=== PATIENT | female | born 1930 | race Caucasian/White ===

== ENCOUNTER 2017-10-29 19:11 | Inpatient (IN) | payer MEDICARE, BC ==
[~2017-10-29] VITALS: Ht 149.9 cm; Wt 88.9 kg
[2017-10-29 19:16] VITALS: BP 136/70
[2017-10-29 19:56] LABS: HEMOGLOBIN 14.4 gm/dL (12.0-15.0); MCH 29.5 pg (26.0-34.0); MCHC 32.7 g/dL (28.0-37.0); MCV 90.3 fL (80.0-100.0); NUCLEATED RBCS 0 /100WBC; PLATELET COUNT* 250 thou/uL (150-400); RBC 4.87 mil/uL (4.20-5.00); RDW-CV 15.3 % (10.5-14.5); WBC 14.8 thou/uL (4.0-11.0)
[2017-10-29 20:04] LABS: ANION GAP 8 mmol/L (7-16); BUN 19 mg/dL (7-18); CALCIUM 8.8 mg/dL (8.5-10.1); CHLORIDE 103 mmol/L (98-107); CO2 29 mmol/L (21-32); CREATININE 0.9 mg/dL (0.6-1.3); GLUCOSE 190 mg/dL (70-99); SODIUM 140 mmol/L (136-145)
[2017-10-29 20:08] LABS: PROTIME 28.8 Seconds (9.20-11.50)
[2017-10-29 20:16] LABS: ALBUMIN 3.6 g/dL (3.4-5.0); ALKALINE PHOSPHATASE 90 U/L (46-116); LIPASE 77 U/L (73-393); NT-PRO BRAIN NAT PEPTIDE 352 pg/mL (<300); SGOT 22 U/L (15-37); SGPT 26 U/L (30-65); TOTAL BILIRUBIN 0.3 mg/dL (<0.1-1.0); TOTAL PROTEIN 7.4 g/dL (6.4-8.2); TROPONIN-I LEVEL <0.06 ng/mL (<0.06)
[2017-10-29] MEDS ORDERED: CENTRUM SILVER1 EAC4 PO (20:35)
[2017-10-29] MEDS ORDERED: FISH OIL 1,001000 M2 PO (20:35)
[2017-10-29] MEDS ORDERED: TYLENOL EXTRA500 MG PO (20:35)
[2017-10-29] MEDS ORDERED: TUMS PO (20:36)
[2017-10-29] MEDS ORDERED: ALLOPURINOL 10100 M1 PO (20:36)
[2017-10-29] MEDS ORDERED: GLUCOTROL5 MG PO (20:36)
[2017-10-29] MEDS ORDERED: NEURONTIN600 MG PO (20:37)
[2017-10-29] MEDS ORDERED: LIPITOR10 MG PO (20:37)
[2017-10-29] MEDS ORDERED: OMEPRAZOLE20 M1 PO (20:37)
[2017-10-29 21:39] LABS: ABSOLUTE NEUTROPHILS 12.7 thou/uL (1.6-8.1)
[2017-10-29 21:46] LABS: PLATELET ESTIMATE ADEQUATE
[2017-10-29 22:34] LABS: URINE BILIRUBIN NEGATIVE (Negative); URINE BLOOD NEGATIVE (Negative); URINE CLARITY CLEAR; URINE COLOR YELLOW; URINE GLUCOSE-RANDOM TRACE (Negative); URINE KETONES TRACE (Negative); URINE LEUKOCYTES-REFLEX NEGATIVE (Negative); URINE NITRITE-REFLEX NEGATIVE (Negative); URINE PROTEIN NEGATIVE (Negative); URINE UROBILINOGEN 0.2 E.U./dl (0.2-1.0)
[2017-10-29 23:23] VITALS: BP 169/79
[2017-10-30] VITALS (7 sets, daily range): BP systolic 128–165; BP diastolic 45–75
--- NOTE | 2017-10-30 05:01 | NUR ---
ADMITTED TO 223 @ 2340, SEE ASSESSMENT. PT NOTED TO HAVE BRUISE AND LUMP TO R FOREHEAD WHICH SHE STATES SHE INCURRED WHEN SHE FELL AT HOME TODAY, SKIN IS NOT BROKEN. CONVEYOR WORKER PLACED, SR. NO SCD'S PLACED DUE TO BROWNISH DISCOLORATION OF BLE BELOW THE KNEE SUGESTING PVD. PT DENIED PAIN BUT STATED LEFT FOOT PAIN WITH AMBULATION THAT IS NEW SINCE HER FALL. NO BRUISING, SWELLING, OR DEFORMITY NOTED. PT INSTRUCTED PROJECT PLANNER LIGHT USE AND ROOM, VERBALIZED UNDERSTANDING. CALL LIGHT WITHIN REACH.
[2017-10-30 05:49] LABS: HEMATOCRIT 39.4 % (37.0-47.0); MCH 29.8 pg (26.0-34.0); MCHC 33.1 g/dL (28.0-37.0); MCV 90.2 fL (80.0-100.0); MPV 8.4 fl. (7.2-11.1); RBC 4.37 mil/uL (4.20-5.00); RDW-CV 15.1 % (10.5-14.5); WBC 7.8 thou/uL (4.0-11.0)
[2017-10-30 06:01] LABS: ALBUMIN 2.9 g/dL (3.4-5.0); CALCIUM 8.4 mg/dL (8.5-10.1); CREATININE 0.7 mg/dL (0.6-1.3); POTASSIUM 3.9 mmol/L (3.5-5.1); TOTAL BILIRUBIN 0.5 mg/dL (<0.1-1.0); TOTAL PROTEIN 6.2 g/dL (6.4-8.2)
[2017-10-30] MEDS ORDERED: LISINOPRIL5 MG PO (09:09)
--- NOTE | 2017-10-30 10:18 | NUR ---
ASSUMED CARE OF PT AT 0730. PT RESTING IN BED WAITING FOR BREAKFAST. PT A&0X4, DENIES ANY PAIN, NAUSEA, VOMITING OR DIARRHEA AT THIS TIME. PT TRACING SR ON THE HAND MARKER. ON RA SAT 95%. DENIES ANY SHORTNESS OF BREATH. PT UP WITH 1 ASSIST. HOME MEDICATIONS RESTARTED BY DR JEAN-BAPTISTE. PT TO HAVE NEURO CONSULT TODAY, WORK WITH PT AND OT, ECHO, US CAROTIDS, OBTAIN STOOL SAMPLE AND OBTAIN ORTHOSTATIC VITALS. AM ASSESSMENT CHARTED. MEDICATIONS PER JUL. PT REPOSITIONS SELF. HOURLY ROUNDING OBSERVED. BED IN LOW POSITION. BED ALARM IN PLACE. FALL PRECAUTIONS IN PLACE. CALL LIGHT WITHIN REACH. WILL CONTINUE PLAN OF CARE.
--- NOTE | 2017-10-30 10:37 | EKG ---
[place] [address] ELECTROCARDIOGRAM REPORT Name: SELENA GAMING Room: [address] IN .R.#: [id number] Admission: 10/29/17 Attend Phys: Sophia Leo MD Discharge: Date of : 34 Report #: [id number] THIS REPORT FOR: //name// [facility] ED Test Date: 2017-10-29 Test Time: 19:42:22 Pat Name: SELENA GAMING Department: Room: Gender: F Surface Hydrologist: : 1930 Requested By: Savanna Celis Order Number: [id number] MD: Efrain Leblanc Measurements Intervals [place] Rate: 99 P: 67 MA: 171 QRS: 31 QRSD: 108 T: 0 QT: 400 QTc: 514 Interpretive Statements Sinus tachycardia Multiple premature complexes, vent & supraven Low voltage, extremity and precordial leads Prolonged QT interval No previous ECG available for comparison Electronically Signed On 10-30-2017 10:37:42 CDT by Efrain Leblanc [email or web address] <ELECTRONICALLY SIGNED> By: Efrain Leblanc MD, FACC 10/30/17 1037 41 41 Efrain Leblanc MD, [facility] /EPI
--- NOTE | 2017-10-30 14:43 | NUR ---
MET WITH PT TO DISCUSS HOME SITUATION/DC PLANNING PT LIVES WITH SON/DESMOND. SHE IS INDEPENDENT WITH ADLS. USES CANE AND SHOWER CHAIR. PT STATES SHE IS ABLE TO COOK AND CLEAN. FAMILY DOES DRIVING. PT HAS HAD HH IN THE PAST BUT NOT CURRENT. SHE DENIES ANY DC NEEDS. DTR/LUIS ANTONIO IS HER DPOA. WILL FOLLOW
--- NOTE | 2017-10-30 17:14 | NUR ---
NO ACUTE CHANGES THROUGHOUT SHIFT. REFER TO CHARTING. PT HAD XRAY OF LEFT FOOT FOR FOOT PAIN AFTER FALL YESTERDAY. X RAY SHOWING NONDISPLACED FRACTURE- BASE OF THE [address] JEAN-BAPTISTE NOTIFIED. ORDERS RECEIVED TO CONSULT ORTHO. AWAITING ORTHO CALL BACK AT THIS TIME. NEURO SEEN PT TODAY AND ORDERED MUTLIPLE TESTS. REFER TO RESULTS. PT HAD US CAROTIDS-NEGATIVE, ORTHOSTATIC VITALS COMPLETED- PT SCREENED NEGATIVE, MRI HEAD-NEGATIVE, MRI CAROTID-NEGATIVE, MRA [place]-NEGATIVE. REFER TO ALL RESULTS. STOOL SAMPLE STILL NEEDS TO BE OBTAINED AT THIS TIME. PT HAS NOT HAD A BOWEL MOVEMENT SINCE ADMISSION. PT DIET ADVANCED TO REGULAR-TOLERATING WELL WITH NO NAUSEA OR VOMITING. PT CONTINUES TO TRACE SR ON THE ADOPTION SPECIALIST. ON RA SAT UPPER 90'S. PT DENIES ANY PAIN OR SHORTNESS OF BREATH THIS AFTERNOON. PT UP WITH 1 ASSIST TO BATHROOM. DENIES ANY DIZZINESS TODAY. MEDICATIONS PER JUL. PT REPOSITIONS SELF. HOURLY ROUNDING OBSERVED. BED IN LOW POSITION. BED ALARM IN PLACE. FALL PRECAUTIONS IN PLACE. CALL LIGHT WITHIN REACH. WILL CONTINUE PLAN OF CARE.
--- NOTE | 2017-10-30 17:23 | 2DMMODE ---
[place] [address] 2 D/M-MODE ECHOCARDIOGRAM Name: SELENA GAMING Vivek Room: [address] IN [facility]#: [id number] Admission: 10/29/17 Attend Phys: Sophia Leo, Discharge: Date of : 34 Date of Service: 10/30/17 1722 Report #: [id number] THIS REPORT FOR: //name// APPROVED REPORT Study performed: 10/30/2017 14:43:10 EXAM: Comprehensive 2D, Doppler, and color-flow Echocardiogram Patient Location: In-Patient Room #: [facility] Status: routine BSA: 1.83 HR: 57 bpm BP: 141/45 mmHg Rhythm: NSR Other Information Study Quality: Good Indications Syncope 2D Dimensions LVEF(%): 70.51 (>50%) IVSd: 11.17 (7-11mm) LVOT Diam: 20.23 (18-24mm) LVDd: 50.58 mm PWd: 9.52 (7-11mm) Ascending Ao: 35.45 (22-36mm) LVDs: 30.29 (25-40mm) Aortic Root: 34.34 mm Moore's LVEF: 70.51 % Volumes Left Atrial Volume (Systole) LA ESV Index: 35.90 mL/m2 Aortic Valve AoV Peak Maikel.: 1.48 m/s AO Peak Gr.: 8.75 mmHg LVOT Max P.95 mmHg AO Mean Gr.: 4.51 mmHg LVOT Mean P.74 mmHg LVOT Max V: 1.22 m/s AO V2 VTI: 31.89 cm LVOT Mean V: 0.75 m/s CALLIE (VTI): 2.71 cm2 LVOT V1 VTI: 26.87 cm AI Ceiba: 1.54 m/s2 AI PHT: 566.61 [place] [address] 2 D/M-MODE ECHOCARDIOGRAM Name: SELENA GAMING Room: [address] IN .R.#: [id number] Admission: 10/29/17 Attend Phys: Sophia Leo, Discharge: Date of : 34 Date of Service: 10/30/17 1722 Report #: [id number] Mitral Valve E/A Ratio: 0.85 MV Decel. Time: 232.06 ms MV E Max Maikel.: 1.06 m/s MV PHT: 67.30 ms MVA (PHT): 3.27 cm2 TDI E/Lateral E': 15.14 E/Medial E': 11.78 Medial E' Maikel.: 0.09 m/s Lateral E' Maikel.: 0.07 m/s Pulmonary Valve PV Peak Maikel.: 0.65 m/s PV Peak Gr.: 1.68 mmHg Tricuspid Valve TR Peak Gr.: 24.06 mmHg RVSP: 29.00 mmHg Left Ventricle The left ventricle is normal size. There is normal LV segmental wall motion. There is normal left ventricular wall thickness. Left ventricular systolic function is normal. The left ventricular ejection fraction is within the normal range. LVEF is 60-65%. Grade I - abnormal relaxation pattern. Right Ventricle The right ventricle is normal size. The right ventricular systolic function is normal. Atria Left atrium is borderline dilated. The right atrium size is normal. Aortic Valve Mild aortic valve sclerosis. Mild to moderate aortic regurgitation. There is no aortic valvular stenosis. Mitral Valve There is mitral annular calcification. Trace mitral regurgitation. No evidence of mitral valve stenosis. Tricuspid Valve The tricuspid valve is normal in structure. Mild tricuspid regurgitation. The RVSP is ___29____ [place] [address] 2 D/M-MODE ECHOCARDIOGRAM Name: SELENA GAMING Room: [address] IN [facility]#: [id number] Admission: 10/29/17 Attend Phys: Sophia Leo, Discharge: Date of : 34 Date of Service: 10/30/17 1722 Report #: [id number] The pulmonary valve is normal in structure. Mild pulmonic regurgitation. Great Vessels The aortic root is normal in size. IVC is normal in size and collapses with >50% inspiration Pericardium There is no pericardial effusion. <Conclusion> LVEF is 60-65%. Grade I - abnormal relaxation pattern.Mild aortic valve sclerosis. There is no aortic valvular stenosis. Mild to moderate aortic regurgitation. There is mitral annular calcification. No evidence of mitral valve stenosis. Trace mitral regurgitation. Left atrium is borderline dilated. <ELECTRONICALLY SIGNED> By: Efrain Leblanc MD, FACC 10/30/171721 21 21 Efrain Leblanc MD, FACC /INF
[2017-10-30] MEDS ORDERED: COUMADIN 4 MG TA4 M1 PO (22:08)
[2017-10-31] VITALS: BP 144/52
[2017-10-31 02:07] LABS: GLYCOHEMOGLOBIN (HGB A1C) 6.8 % (4.8-5.6)
[2017-10-31 04:00] VITALS: BP 130/69
--- NOTE | 2017-10-31 04:43 | NUR ---
PATIENT RESTED IN BED, NO ACUTE CHANGES. PATIENT DID NOT SHOW SIGNS OF DISTRESS. FALL PRECAUTIONS IN PLACE, BED ALARM ON, CALL LIGHT WITHIN REACH. PATIENT VOICED SHE TAKES WARFARIN AT HOME , DOCTOR NURIA NOTIFIED, INR ORDERED. PATIENT ALSO VOICED SHE TAKES CALCIUM BID, DOCTOR NOTIFIED, MED ADJUSTED. PATIENT DID NOT COMPLAIN OF PAIN, PATIENT
[2017-10-31 05:10] LABS: INR 1.8; PROTIME 17.7 Seconds (9.20-11.50)
--- NOTE | 2017-10-31 06:46 | NUR ---
SERVICE STATION ATTENDANT STATES PAINET HAD FREQUENT URINATION.
[2017-10-31 08:26] VITALS: BP 169/76
[2017-10-31 09:48] LABS: CHOLESTEROL 116 mg/dL (<200); HDL CHOLESTEROL 47 mg/dL (>40); LDL CHOLESTEROL 55 mg/dL (<100); TC:HDL 2.5 Ratio (Not establshd); TRIGLYCERIDE 74 mg/dL (<150); VLDL 15 mg/dL (<40)
[2017-10-31 09:51] LABS: SERUM ASSESSMENT Clear
[2017-10-31 12:10] VITALS: BP 130/84
--- NOTE | 2017-10-31 12:10 | NUR ---
ASSUMED CARE OF PATIENT AFTER REPORT THIS MORNING. PATIENT AWAKE, ALERT, AND ORIENTED APPROPRIATELY. PHYSICAL ASSESSMENT COMPLETED AND CHARTED. NO COMPLAINTS OF PAIN. VITAL SIGNS STABLE. OXYGEN SATURATION WITHIN NORMAL LIMITS ON ROOM AIR. GIVEN SCHEDULED MEDICATIONS, SEE EMAR FOR DOCUMENTATION. PATIENT TRANSFERS AND AMBULATES IN ROOM WITH ASSISTANCE FROM STAFF AND CANE. USES CALL LIGHT APPROPRIATELY, WITHIN REACH. HAVING EEG DONE AT THIS TIME. NURSING WILL CONTINUE TO MONITOR.
[2017-10-31 14:03] VITALS: BP 130/84
--- NOTE | 2017-10-31 14:57 | NUR ---
RECEIVED ORDERS TO DISCHARGE PATIENT HOME WITH SON. DISCHARGE PAPERWORK COMPLETED AND DISCUSSED WITH PATIENT. IV DISCONTINUED AND HEART MONITOR RETURNED TO NURSE'S STATION. PATIENT ESCORTED TO FRONT ENTERANCE BY THIS NURSE VIA WHEELCHAIR. PATIENT DISCHARGED AT 1455.
--- NOTE | 2017-11-02 08:15 | EEG ---
[address] [address] EEG STUDY REPORT Name: SELENA GAMING Room: [address] IN M.R.#: [id number] Admission: 10/29/17 Attend Phys: Sophia Leo MD Discharge: 10/31/17 Date of : 34 Report #: [id number] THIS REPORT FOR: //name// CC: Sophia Bang DATE OF SERVICE: 10/31/2017 This patient is being evaluated for an episode of syncope. EEG was done to evaluate for the possibility of seizure. EEG was done by placing the electrode by standard 10-20 system of electrode placement. Both referential and sequential montages were used for recording. Background activity in this patient's EEG is about 11 Hz and 30-40 microvolt. It is a symmetrical activity. The patient goes to sleep that is associated with bilateral slowing and vertex sharp waves. Throughout the record, no active epileptiform activity was noticed. IMPRESSION: This patient's EEG is within normal limit. Thank you very much for this referral. <ELECTRONICALLY SIGNED> By: Andrade Pena MD 11/02/17 0815 0730 [id number] Pena MD /nt
--- NOTE | 2017-11-02 08:15 | CON ---
[address] [address] CONSULTATION Name: SELENA GAMING Vivek Room: [address] IN M.R.#: [id number] Admission: 10/29/17 Attend Phys: Sophia Leo MD Discharge: 10/31/17 Date of : 34 Report #: [id number] THIS REPORT FOR: //name// CC: Sophia Bang DATE OF SERVICE: 10/30/2017 HISTORY OF PRESENT ILLNESS: This is an 87-year-old female patient who was evaluated by me for any neurological etiology for the patient's passing-out spell. The patient gives a history that she was having some stomach problem. She was having some diarrhea and some nausea. She was going to have a bowel movement. She passed out because she was having pain. Before she passed out, she had an opportunity to break the fall. Her 2 sons were at home and were expecting her on the dinner table. When she did not come, they went to look for her and found her passed out. They did not hear a thud, and I suspect she was able to break the fall. She was conscious immediately after that and came back to her baseline. She had another episode like this about 10-15 years ago. At that time, it was in similar circumstances. She was preparing herself for colonoscopy and was drinking all the things for preparing her colon for colonoscopy and she was having bowel movements and diarrhea. At one time, she had a head injury and she said she had some bleeding with it, that also was about 10-15 years ago. She does have multiple other problems which include history of DVT, brain fracture, hypertension, urinary incontinence, osteoarthritis, history of diabetes and neuropathy. She denies any stroke in the past. She does not have chronic back pain. She is not having any chest pain or respiratory difficulty. She had vision problems in the past and has lost some vision. She is not complaining of any ENT symptom. She does not have any dermatological or hematological symptoms. She does not have any allergic or throat symptom. PAST MEDICAL HISTORY: Positive for a similar spell. FAMILY HISTORY: Noncontributory. SOCIAL HISTORY: She does not smoke or drink alcohol. PHYSICAL EXAMINATION: Indicate she is alert. She is responsive. She is able to follow simple and complex commands. Her speech, concentration, fund of knowledge and memory are at her baseline. Cranial nerve examination 2-12 is unremarkable. Strength, sensation, reflexes and tone are symmetrical. Her reflexes are diminished on both sides. Position sense is present. There is no cerebellar sign. There is no carotid bruit. There is no thyroid mass. She is a moderately built individual. Her hearing and vision looks adequate. She has no dysmorphic features of face. Her pulses [place] [address] CONSULTATION Name: SELENA GAMING Room: [address] [place] .R.#: [id number] Admission: 10/29/17 Attend Phys: Sophia Leo MD Discharge: 10/31/17 Date of : 34 Report #: [id number] has no edema, cyanosis or jaundice. Cardiac examination is unremarkable. No respiratory difficulty or rhonchi was noticed. Blood pressure is 141/45, respiration is 19, pulse is 75, temperature is 98.5. LABORATORY DATA: Indicated normal white count. She did have a CT scan of the head and C-spine, which does not show any acute changes. IMPRESSION: Clinically, it would appear that the patient's episode was probably a vasovagal spell; from description, that is what it looks like. I will suggest consulting Cardiology to evaluate that further. I will check a neurological workup to exclude any neurological etiology. That workup is ordered and we will follow up in case that shows something. RECOMMENDATIONS: 1. MRI. 2. MRA. 3. EEG. 4. I will suggest Cardiology consult to evaluate the patient for any vasovagal spell. Thank you very much for this referral. <ELECTRONICALLY SIGNED> By: Andrade Pena MD 11/02/17 0815 1112 [id number] Pena MD /nt
== END 2017-10-31 14:55 | disposition home or self-care (01) | DRG 641 ==
LOC: M.ERS 19:11 → M.2W 22:12 → M.TBA-ER 22:12 → M.2W 23:33
PROVIDERS: Emergency Medicine; Family Medicine; Internal Medicine; Psychiatry & Neurology Neuromuscular Medicine; ADMIT Internal Medicine
DX: E86.0 Dehydration (principal); E44.1 Mild protein-calorie malnutrition; A08.4 Viral intestinal infection, unspecified; R55 Syncope and collapse; K52.9 Noninfective gastroenteritis and colitis, unspecified; E78.5 Hyperlipidemia, unspecified; S92.352A Displaced fracture of fifth metatarsal bone, left foot, initial encounter for closed fracture; K21.9 Gastro-esophageal reflux disease without esophagitis; W18.30XA Fall on same level, unspecified, initial encounter; G25.81 Restless legs syndrome; M19.90 Unspecified osteoarthritis, unspecified site; E11.40 Type 2 diabetes mellitus with diabetic neuropathy, unspecified; G47.33 Obstructive sleep apnea (adult) (pediatric); Z86.718 Personal history of other venous thrombosis and embolism; Z88.5 Allergy status to narcotic agent; Z79.01 Long term (current) use of anticoagulants; Z86.711 Personal history of pulmonary embolism; Y93.89 Activity, other specified; Y99.8 Other external cause status; Y92.89 Other specified places as the place of occurrence of the external cause